=== PATIENT | female | born 2000 | race Caucasian/White ===

== ENCOUNTER 2021-01-07 20:50 | Emergency (ER) | payer OTHER ==
[2021-01-07 20:59] VITALS: BP 120/66
[2021-01-07] MEDS ORDERED: BACITRACIN ZINC OINT 1 PACKET TOP STA (21:07)
[2021-01-07] MEDS ORDERED: TETANUS/DIPHTHERIA/PERTUSSIS 0.5 ML SYRINGE IM ONE (21:07)
--- NOTE | 2021-01-07 21:10 | ED Physician Documentation ---
History of Present Illness - Stated complaint Stated Complaint: L ARM LAC - Chief complaint Chief Complaint: Wound - Additonal information Additional information: 20-year-old female presents to the emergency department for evaluation of a pun cture wound to her right forearm that she sustained about 3 hours prior to arrival. She was cleaning up outside and accidentally impaled her arm on an exposed nail. She does not think that it went in very far. She is mostly concerned about updating her tetanus. She reports that after the puncture wound was sustained she washed it thoroughly with soap and water then applied alcohol and then hydrogen peroxide. Review of Systems Constitutional: reports: Reviewed and negative Eyes: reports: Reviewed and negative Ears: reports: Reviewed and negative Nose: reports: Reviewed and negative Throat: reports: Reviewed and negative Cardiac: reports: Reviewed and negative Respiratory: reports: Reviewed and negative GI: reports: Reviewed and negative : reports: Reviewed and negative Skin: reports: Lesions (Superficial appearing puncture wound right forearm) Musculoskeletal: reports: Reviewed and negative PD PAST MEDICAL HISTORY - Present Medications Home Medications: Ambulatory Orders Medication Instructions Recorded Confirmed Alprazolam [Xanax] 0.25 mg PO DAILY PRN 01/07/21 01/07/21 Bacitracin Zinc Oint 1 applic TOP BID #1 gm 01/07/21 Bcp 1 tab ORAL DAILY 01/07/21 Fluoxetine HCl [Prozac] 60 mg PO DAILY 01/07/21 01/07/21 Folic Acid 1 mg PO DAILY 01/07/21 01/07/21 Levetiracetam [Keppra] 1,500 mg PO BID 01/07/21 01/07/21 Pantoprazole Sodium 40 mg PO DAILY 01/07/21 01/07/21 traZODone [Desyrel] 50 mg PO HS 01/07/21 01/07/21 - Allergies Allergies/Adverse Reactions: Allergies Allergy/AdvReac Type Severity Reaction Status Date / Time No Known Drug Allergies Allergy Verified 01/07/21 20:55 PD ED PE EXPANDED - General General: Alert, No acute distress, Anxious - Extremities Extremities: Right forearm (Very superficial pinpoint appearing puncture wound dorsum of right forearm. No surrounding erythema or edema. No tenderness to palpation.) Results - Vitals Vitals: Vital Signs - 24 hr 01/07/21 20:54 Temperature 36.5 C Heart Rate 60 Respiratory 16 Rate Blood Pressure 120/66 O2 Saturation 98 Oxygen O2 Source Room air PD MEDICAL DECISION MAKING - ED course Complexity details: d/w patient ED course: Very well-appearing 20-year-old female who does report a longstanding history of she takes Xanax, comes to the emergency department to update her tetanus as she has a puncture wound on her right forearm. It is superficial appearing and was sustained when she accidentally hit her arm against an exposed nail while cleaning up outside. Tetanus is updated today. Will recommend warm compress and antibiotic ointment. Given the superficial nature of this wound defer oral antibiotics unless signs and symptoms of infection develop. Emergent return precautions discussed. Departure - Departure Disposition: Home, Self Care Clinical Impression: Puncture wound Condition: Stable Record reviewed to determine appropriate education?: Yes Instructions: ED Wound Puncture General Prescriptions: Bacitracin Zinc Oint 1 applic TOP BID #1 gm Comments: Ninfa you do have a very superficial puncture wound on your right forearm. This should heal with no further treatment. Your tetanus was updated today and should be current for the next 7 to 10 years. I do recommend that you place a warm compress over the puncture wound for 10 minutes 3 times a day. Also recommend that you apply antibiotic ointment such as bacitracin to the wound 2-3 times a day. If you develop redness, have increased pain, milky drainage fevers or red streaking or you have any concerns of infection then please return immediately to the emergency department.
== END 2021-01-07 21:34 | disposition home or self-care (01) ==
LOC: ED 20:50
DX: S51.831A Puncture wound without foreign body of right forearm, initial encounter (principal); W45.0XXA Nail entering through skin, initial encounter; W22.8XXA Striking against or struck by other objects, initial encounter; Y93.89 Activity, other specified; Z23 Encounter for immunization
CPT/HCPCS: 90471; 90715; 99282; 99283; A9270